=== PATIENT | female | born 1950 | race Caucasian/White ===

== ENCOUNTER 2018-02-27 08:47 | Emergency (ER) | payer SELFPAY ==
[~2018-02-27] VITALS: Ht 157.5 cm; Wt 52.2 kg
[2018-02-27 09:10] VITALS: BP 151/77
== END 2018-02-27 10:09 | disposition home or self-care (01) ==
LOC: ER 08:47
DX: H65.03 Acute serous otitis media, bilateral (principal); F17.210 Nicotine dependence, cigarettes, uncomplicated; Z90.710 Acquired absence of both cervix and uterus

== ENCOUNTER 2018-04-04 15:09 | Emergency (ER) | payer SELFPAY ==
[~2018-04-04] VITALS: Ht 157.5 cm; Wt 52.2 kg
[2018-04-04 16:45] VITALS: BP 145/75
== END 2018-04-04 18:28 | disposition home or self-care (01) ==
LOC: ER 15:17
DX: H60.93 Unspecified otitis externa, bilateral (principal); J44.9 Chronic obstructive pulmonary disease, unspecified; F17.210 Nicotine dependence, cigarettes, uncomplicated; Z90.710 Acquired absence of both cervix and uterus
CPT/HCPCS: 71046; 71250

== ENCOUNTER 2018-12-10 19:33 | Emergency (ER) | payer MEDICARE, MEDICAID | END 2018-12-10 19:45 | disposition left against medical advice (07) | LOC: ER 19:33 | DX: H57.12 Ocular pain, left eye (principal); Z53.21 Procedure and treatment not carried out due to patient leaving prior to being seen by health care provider ==

== ENCOUNTER 2018-12-10 21:07 | Emergency (ER) | payer MEDICARE, MEDICAID ==
[~2018-12-10] VITALS: Ht 157.5 cm; Wt 54.4 kg
[2018-12-11 00:33] VITALS: BP 155/87
[2018-12-11] MEDS ORDERED: TETRACAINE HCL 0.5% OPTH(EYE) SOLN 4ML LEFTEYE ONE (00:45)
[2018-12-11] MEDS ORDERED: FLUORESCEIN SOD 1 MG TEST STRIP LEFTEYE ONE (00:45)
== END 2018-12-11 02:09 | disposition home or self-care (01) ==
LOC: ER 21:14
DX: T15.02XA Foreign body in cornea, left eye, initial encounter (principal); F17.210 Nicotine dependence, cigarettes, uncomplicated; Z90.710 Acquired absence of both cervix and uterus; X58.XXXA Exposure to other specified factors, initial encounter; Y93.89 Activity, other specified; Y92.89 Other specified places as the place of occurrence of the external cause; Y99.8 Other external cause status
CPT/HCPCS: 65220

== ENCOUNTER 2022-01-02 20:02 | Emergency (ER) | payer MEDICARE, OTHER ==
[~2022-01-02] VITALS: Ht 157.5 cm; Wt 54.4 kg
[2022-01-03 06:37] VITALS: BP 145/80
[2022-01-03] MEDS ORDERED: methylPREDNISolone SOD SUCC 125 MG/2 ML VL IM ONE (07:00)
[2022-01-03] MEDS ORDERED: ALBUAER3 IN (07:03)
[2022-01-03] MEDS ORDERED: PRED20TA2 PO (07:03)
== END 2022-01-03 07:16 | disposition home or self-care (01) ==
LOC: ER 20:02
DX: J98.01 Acute bronchospasm (principal); F17.210 Nicotine dependence, cigarettes, uncomplicated; Z90.710 Acquired absence of both cervix and uterus
CPT/HCPCS: 71045; 96372; 99283; J2930